=== PATIENT | male | born 1970 | race Caucasian/White ===

== ENCOUNTER 2017-09-14 12:51 | Inpatient (IN) | payer OTHER ==
--- NOTE | 2017-09-14 13:20 | NUR ---
RECEIVED TO FLOOR FROM DR OFFICE, IV STARTED RIGHT HAND, ORIENTED TO ROOM, WILL CONTINUE TO MONITOR
[2017-09-14] MEDS ORDERED: HYDROCODONE-APA1 TAB PO (13:21)
[2017-09-14] MEDS ORDERED: PHENERGAN25 M1 PO (13:22)
[2017-09-14] MEDS ORDERED: IBUPROFEN800 MG PO (13:22)
[2017-09-14] MEDS ORDERED: ADDERALL 20 MG20 M1 PO (13:22)
[2017-09-14 13:54] LABS: BASOPHILS 0.3 % (0-2); EOSINOPHILS 0.4 % (0-7); HEMATOCRIT 43.8 % (42.0-54.0); IMMATURE GRANULOCYTES 0.1 % (0-5); MCH 30.2 pg (26.0-34.0); MCHC 34.2 g/dL (31.0-37.0); MCV 88.1 fL (80.0-100.0); MONOCYTES 8.4 % (2-11); NEUTROPHILS 66.8 % (40-80); PLATELET COUNT 197 10x3/uL (130-400); RBC 4.97 10x6/uL (4.20-6.10); RDW 12.9 % (11.5-14.5); WBC 7.6 10x3/uL (4.8-10.8)
[2017-09-14 14:37] LABS: ALBUMIN 3.8 g/dL (3.4-5.0); ALKALINE PHOSPHATASE 64 U/L (46-116); ALT (SGPT) 72 U/L (10-68); BILIRUBIN - INDIRECT 0.53 mg/dL (0.00-1.00); BILIRUBIN - TOTAL 0.73 mg/dL (0.2-1.3); CALC OSMOLALITY 285 mosm/kg (275-300); CALCIUM 9.2 mg/dL (8.5-10.1); CARBON DIOXIDE 31.3 mmol/L (21.0-32.0); CHLORIDE - SERUM 105 mmol/L (98-107); CREATININE - SERUM 1.1 mg/dL (0.6-1.3); GLUCOSE 91 mg/dL (74-106); POTASSIUM - SERUM 4.3 mmol/L (3.5-5.1); PROTEIN - SERUM 7.1 g/dL (6.4-8.2); SODIUM 143 mmol/L (136-145); UREA NITROGEN 15 mg/dL (7-18); eGFR NON AFRICAN AMERICAN 76 mL/min (90-120)
[2017-09-14 16:12] LABS: AMYLASE - SERUM 63 U/L (25-115); LIPASE 245 U/L (73-393)
[2017-09-14 17:29] VITALS: BP 132/88; BMI 34.4
--- NOTE | 2017-09-14 18:00 | NUR ---
RESTING QUIETLY IN BED. DENIES NEEDS. ASSISTED TO GET CL TRAY.
--- NOTE | 2017-09-14 19:15 | NUR ---
RECEIVED CARE FROM DAY NURSE. PT IN SHOWER AT THIS TIME.
[2017-09-14 20:00] VITALS: BP 127/79
[2017-09-15] VITALS: BP 110/72
[2017-09-15 01:53] LABS: APPEARANCE CLEAR (CLEAR); BILIRUBIN NEGATIVE (NEGATIVE); COLOR YELLOW (YELLOW); GLUCOSE NEGATIVE (NEGATIVE); KETONE NEGATIVE (NEGATIVE); NITRITE NEGATIVE (NEGATIVE); PROTEIN NEGATIVE (NEGATIVE); SPECIFIC GRAVITY 1.015 (1.005-1.020); UROBILINOGEN NORMAL (NORMAL)
--- NOTE | 2017-09-15 02:29 | NUR ---
RESTING QUITLY WITH EYES CLOSED. RESP EVEN AND UNLABORED. CALL LIGHT AT SIDE. WILL CONTINUE TO MONITOR.
--- NOTE | 2017-09-15 03:04 | NUR ---
ASSESSED, PT IS CURLED UP ON HIS LEFT SIDE RESING QUIET WITH EASY RESPIRATIONS. THE IS NO DISTRESS NOTED AND HE IS ABLE TO GET UP TO THE BATHROOM NEEDED. THE BED IS LOW, RAILS UP X'S 2 WITH THE CALL LIGHT AT HAND.
[2017-09-15 04:38] VITALS: BP 109/70
[2017-09-15 04:57] LABS: BASOPHILS 0.2 % (0-2); EOSINOPHILS 0.7 % (0-7); HEMATOCRIT 40.4 % (42.0-54.0); HEMOGLOBIN 13.9 g/dL (13.5-17.5); IMMATURE GRANULOCYTES 0.2 % (0-5); MCH 29.8 pg (26.0-34.0); MCHC 34.4 g/dL (31.0-37.0); MCV 86.5 fL (80.0-100.0); MEAN PLATELET VOLUME 9.9 fL (7.4-10.4); MONOCYTES 10.4 % (2-11); NEUTROPHILS 53.5 % (40-80); PLATELET COUNT 188 10x3/uL (130-400); RBC 4.67 10x6/uL (4.20-6.10); RDW 12.8 % (11.5-14.5); WBC 5.8 10x3/uL (4.8-10.8)
[2017-09-15 05:26] LABS: ALBUMIN 3.1 g/dL (3.4-5.0); ALKALINE PHOSPHATASE 50 U/L (46-116); ALT (SGPT) 68 U/L (10-68); CALC OSMOLALITY 276 mosm/kg (275-300); CALCIUM 8.4 mg/dL (8.5-10.1); CARBON DIOXIDE 28.2 mmol/L (21.0-32.0); CHLORIDE - SERUM 105 mmol/L (98-107); CREATININE - SERUM 0.9 mg/dL (0.6-1.3); GLUCOSE 106 mg/dL (74-106); POTASSIUM - SERUM 3.9 mmol/L (3.5-5.1); PROTEIN - SERUM 6.3 g/dL (6.4-8.2); SODIUM 139 mmol/L (136-145); eGFR NON AFRICAN AMERICAN > 90 mL/min (90-120)
[2017-09-15 05:28] LABS: UREA NITROGEN 11 mg/dL (7-18)
[2017-09-15 08:36] VITALS: BP 120/84
--- NOTE | 2017-09-15 12:55 | NUR ---
PT RESTING IN BED WITH FAMILY AT BEDSIDE. NO COMPLAINTS. FLD TRAY ORDERED. BED LOW, CALL LIGHT IN REACH, DENIES NEEDS. CPOC.
[2017-09-15 13:43] VITALS: BP 134/92
--- NOTE | 2017-09-15 15:16 | NUR ---
DISCHARGE INSTRUCTIONS DISCUSSED AT THIS TIME. NO QUESTIONS OR COCERNS VOICED. PIV TO R HAND DC'D WITH CATHETER INTACT. ESCORTED OUT VIA WC.
== END 2017-09-15 15:17 | disposition home or self-care (01) | DRG 390 ==
LOC: D.MS 12:51
PROVIDERS: Family Medicine; ADMIT Emergency Medicine
DX: K56.7 Ileus, unspecified (principal); F98.8 Other specified behavioral and emotional disorders with onset usually occurring in childhood and adolescence; G47.33 Obstructive sleep apnea (adult) (pediatric)

== ENCOUNTER → 2019-10-21 09:43 | Outpatient (CLI) | payer OTHER ==
[~2019-10-21 09:43] MED LIST: ADDERALL 20 MG20 M1 PO; HYDROCODONE-APA1 TAB PO; IBUPROFEN800 MG PO; PHENERGAN25 M1 PO
--- NOTE | 2019-10-24 15:28 | ST ---
PATIENT:KALE VIDALES MEDICAL RECORD: [id number] SEX: M LOCATION:[facility] ORDER #: ADMISSION DATE: 10/21/19 AGE OF PATIENT: 49 REFERRING PHYSICIAN: INTERPRETING PHYSICIAN: JOLYNN MORSE MD DATE OF SERVICE: 10/21/2019 INDICATION: Angina, shortness of breath, and hypertension. He was exercised on standard Lexiscan protocol with 33 mCi sestamibi injected at peak stress, 11 mCi used previously for rest images. FINDINGS: Gated SPECT reveals preserved ejection fraction at 49% with good wall motion and thickening and brightening throughout all segments. SPECT imaging Cardiolite was used as myocardial fusion agent. There is homogeneous uptake throughout all segments at rest and stress with no evidence of inducible ischemia or previous infarction. OVERALL IMPRESSION: 1. This is a normal nuclear stress test with no evidence of inducible ischemia or previous infarction. 2. Gated SPECT reveals a preserved ejection fraction at 49%. In this patient with ongoing symptomatology, the current scan does not suggest the presence of hemodynamically significant coronary artery disease. Evaluate noncardiac etiology of chest pain. TRANSINT:[id number] Voice Confirmation ID: [id number] DOCUMENT ID: [id number] JOLYNN MORSE MD at 1528 CC: AYAZ MONTAÑO [id number] DICTATION DATE: 10/22/19 1249 DEPUTY DIRECTOR: 10/22/19 2310 DEP CLI 10/21/19 [id number] [place] [address]
== END | disposition home or self-care (01) ==
LOC: D.HCCARDIO 09:43
PROVIDERS: ATTEND Internal Medicine Interventional Cardiology
DX: I20.9 Angina pectoris, unspecified (principal)

== ENCOUNTER → 2020-01-16 13:58 | Outpatient (CLI) | payer OTHER | END | disposition home or self-care (01) | LOC: D.RT 13:58 | PROVIDERS: ATTEND Internal Medicine Pulmonary Disease | DX: J44.9 Chronic obstructive pulmonary disease, unspecified (principal) ==

== ENCOUNTER → 2020-03-22 08:19 | Outpatient (CLI) | payer OTHER | END | disposition home or self-care (01) | LOC: D.CT 08:00 | PROVIDERS: ATTEND Internal Medicine Pulmonary Disease | DX: R94.2 Abnormal results of pulmonary function studies (principal) ==

== ENCOUNTER → 2020-04-07 16:38 | Outpatient (CLI) | payer OTHER | END | disposition home or self-care (01) | LOC: D.LABREF 16:38 | PROVIDERS: ATTEND Internal Medicine Pulmonary Disease | DX: J43.9 Emphysema, unspecified (principal) ==

== ENCOUNTER → 2021-04-17 13:59 | Outpatient (CLI) | payer OTHER | END | disposition home or self-care (01) | LOC: D.LAB 13:59 | PROVIDERS: ATTEND Internal Medicine Pulmonary Disease | DX: J43.9 Emphysema, unspecified (principal) ==

== ENCOUNTER → 2021-04-22 07:19 | Outpatient (CLI) | payer OTHER | END | disposition home or self-care (01) | LOC: D.LAB 07:19 → D.RT 09:00 | PROVIDERS: ATTEND Internal Medicine Pulmonary Disease | DX: J43.9 Emphysema, unspecified (principal) ==